=== PATIENT | female | born 1980 | race Caucasian/White ===

== ENCOUNTER 2017-07-25 13:10 | Emergency (ER) | payer MEDICAID ==
[~2017-07-25] VITALS: Ht 154.9 cm; Wt 62.5 kg
[~2017-07-25 13:10] MED LIST: PRENATALS
[2017-07-25 13:19] VITALS: Ht 154.9 cm; Wt 62.5 kg
[2017-07-25] MEDS ORDERED: SOD CHLORIDE 0.9% 1,000 ML IV STA (14:34)
[2017-07-25] MEDS ORDERED: ACETAMINOPHEN 500 MG TAB PO STA (14:34)
[2017-07-25 15:12] LABS: BASOPHILS % 0.1 % (0.0-2.0); HEMATOCRIT 37.8 % (37.0-47.0); HEMOGLOBIN 12.2 g/dl (12.0-16.0); LYMPHOCYTES # 1.1 10^3/ul (0.8-2.9); LYMPHOCYTES % 6.1 % (15.0-51.0); MEAN CORPUSCULAR HEMOGLOBIN 28.1 pg (29.0-33.0); MEAN CORPUSCULAR HGB CONC 32.3 g/dl (32.0-37.0); MEAN CORPUSCULAR VOLUME 87.1 fl (82.0-101.0); MEAN PLATELET VOLUME 10.1 fl (7.4-10.4); MONOCYTE # 0.8 10^3/ul (0.3-0.9); MONOCYTES % 4.5 % (0.0-11.0); NEUTROPHIL # 15.8 10^3/ul (1.6-7.5); NEUTROPHILS % 88.7 % (39.0-77.0); PLATELET COUNT 292 10^3/UL (140-415); RED BLOOD COUNT 4.34 10^6/ul (4.20-5.40); RED CELL DISTRIBUTION WIDTH 13.2 % (11.5-14.5); WHITE BLOOD COUNT 17.8 10^3/ul (4.8-10.8)
[2017-07-25] MEDS ORDERED: CEFTRIAXONE 1 GM/50 ML (PMX) 50 ML IVPB STA (15:23)
[2017-07-25 15:27] LABS: INR 1.11; PROTIME 14.3 Sec (12.2-14.2); PT RATIO 1.1
[2017-07-25 15:28] LABS: ADD UMIC YES; ALBUMIN 4.1 g/dl (3.3-4.9); ALBUMIN/GLOBULIN RATIO 1.17; BILIRUBIN,INDIRECT 0.4 mg/dl (0-1.1); BILIRUBIN,TOTAL 0.4 mg/dl (0.2-1.3); CALCIUM 8.9 mg/dl (8.4-10.2); CREATININE 0.7 mg/dl (0.44-1.00); PARTIAL THROMBOPLASTIN TIME 28.1 Sec (25.0-35.0); POTASSIUM 3.4 mmol/L (3.5-5.1); TOTAL PROTEIN 7.6 g/dl (6.1-8.1); UR ASCORBIC ACID NEGATIVE (NEGATIVE); UR BILIRUBIN (Dip) NEGATIVE (NEGATIVE); UR BLOOD (Dip) 1+ mg/dL (NEGATIVE); UR CLARITY SLIGHTLY CLOUDY (CLEAR); UR COLOR YELLOW (YELLOW); UR GLUCOSE (Dip) NEGATIVE (NEGATIVE); UR KETONES (Dip) NEGATIVE (NEGATIVE); UR LEUKOCYTE ESTERASE (Dip) 1+ Leu/ul (NEGATIVE); UR MUCUS FEW /HPF (NONE SEEN); UR NITRITE (Dip) NEGATIVE (NEGATIVE); UR RBC 1 /HPF (0-5); UR SPECIFIC GRAVITY (Dip) 1.025 (1.003-1.030); UR SQUAMOUS EPITHELIAL CELL FEW /HPF (FEW); UR TOTAL PROTEIN (Dip) NEGATIVE (NEGATIVE); UR UROBILINOGEN (Dip) NEGATIVE (NEGATIVE)
[2017-07-25] MEDS ORDERED: CEFTRIAXONE 1 GM/50 ML (PMX) 50 ML IVPB ONE (15:30)
--- NOTE | 2017-07-25 15:43 | RADRPT ---
PROCEDURE: US Pelvis. CLINICAL INDICATION: Pelvic pain. TECHNIQUE: The pelvis was evaluated with transabdominal and transvaginal sonography in the axial a nd sagittal planes. COMPARISON: No prior study is available for comparison. FINDINGS: Uterus: 9.9 x 4.5 x 5.7 cm. Endometrium: 13.5 mm. Right ovary: 2.4 x 4.5 x 3.5 cm. Left ovary: 2.7 x 2.0 x 2.5 cm. Uterine masses: None. Ovarian masses: None. Color Doppler and pulsed Doppler sonography demonstrate normal flow to the ova hernesto. Other pelvic masses: None. Free fluid: None. IMPRESSION: 1. Normal pelvic ultrasound. RPTAT: QQ .Ta Teixeira MD, MD Date Time Electronically viewed and signed by .Ta Teixeira MD, on 07/25/2017 15:42 .R/
[2017-07-25 16:44] VITALS: BP 94/64; PULSE 89; RESP 20; TEMP 98.8
--- NOTE | 2017-07-25 17:10 | ERD ---
ER Documentation Chief Complaint Date/Time DATE: 07/25/17 TIME: 17:08 Chief Complaint Complains of pelvic x 2 days HPI 37-year-old female presents to the emergency department complaining of fever and severe constant pelvic pain for the past 2 days. Patient denies nausea, vomiting, constipation, diarrhea, dysuria, hematuria. She has not tried any medications for this. ROS All systems reviewed and are negative except as per history of present illness. Medications Home Meds Active Scripts Cephalexin* (Keflex*) 500 Mg Capsule, 500 MG PO TID for 7 Days, CAP Prov:DARIUSZ ROBLES PA-C 07/25/17 Acetaminophen* (Tylenol*) 325 Mg Tablet, 2 TAB PO Q4 Y for PAIN AND OR ELEVATED TEMP, #30 TAB Prov:DARIUSZ ROBLES PA-C 07/25/17 Reported Medications [Prenatals] No Conflict Check 05/30/13 Allergies Allergies: Coded Allergies: No Known Drug Allergy (Unverified Allergy, Unknown, 05/30/13) PMhx/Soc History of Surgery: No Anesthesia Reaction: No Hx Neurological Disorder: No Hx Respiratory Disorders: No Hx Cardiac Disorders: No Hx Psychiatric Problems: No Hx Miscellaneous Medical Probl: No Hx Alcohol Use: No Hx Substance Use: No Hx Tobacco Use: No Physical Exam Vitals Vital Signs Date Time Temp Pulse Resp B/P Pulse Ox O2 Delivery O2 Flow Rate FiO2 07/25/17 16:44 98.8 89 20 94/64 98 Room Air 07/25/17 13:19 101.4 119 20 105/61 98 Physical Exam GENERAL: well-developed/well-nourished, in no apparent distress, non-toxic appearing HENT: NC/AT, moist mucous membranes EYES: Conjunctiva normal NECK: Supple, no lymphadenopathy PULM: CTA bilaterally, no rales, rhonchi, or wheezing heard CV: Normal S1S2, RRR, good capillary refill GI: Soft, non-distended, tender to palpation pelvic, right and lower quadrant Normal bowel sounds, no masses or organomegaly felt on exam No gross peritonitis, no bruits Negative Rovsing, negative Yates, negative McBurney's point, Negative CVAT BACK: No masses EXT: No clubbing, cyanosis, or edema NEURO: Alert and Orientated SKIN: Intact, normal turgor PSYCH: Normal mood and mentation Result Diagram: 07/25/17 1449 07/25/17 1449 Results 24 hrs Laboratory Tests Test 07/25/17 14:49 White Blood Count 17.810^3/ul Red Blood Count 4.3410^6/ul Hemoglobin 12.2g/dl Hematocrit 37.8% Mean Corpuscular Volume 87.1fl Mean Corpuscular Hemoglobin 28.1pg Mean Corpuscular Hemoglobin Concent 32.3g/dl Red Cell Distribution Width 13.2% Platelet Count 47752^3/UL Mean Platelet Volume 10.1fl Neutrophils % 88.7% Lymphocytes % 6.1% Monocytes % 4.5% Eosinophils % 0.0% Basophils % 0.1% Nucleated Red Blood Cells % 0.0/100WBC Neutrophils # 15.810^3/ul Lymphocytes # 1.110^3/ul Monocytes # 0.810^3/ul Eosinophils # 0.010^3/ul Basophils # 0.010^3/ul Nucleated Red Blood Cells # 0.010^3/ul Prothrombin Time 14.3Sec Prothrombin Time Ratio 1.1 INR International Normalized Ratio 1.11 Activated Partial Thromboplast Time 28.1Sec Urine Color YELLOW Urine Clarity SLIGHTLY CLOUDY Urine pH 5.0 Urine Specific Dixon 1.025 Urine Ketones NEGATIVEmg/dL Urine Nitrite NEGATIVEmg/dL Urine Bilirubin NEGATIVEmg/dL Urine Urobilinogen NEGATIVEmg/dL Urine Leukocyte Esterase 1+Gian/ul Urine Microscopic RBC 1/HPF Urine Microscopic WBC 5/HPF Urine Squamous Epithelial Cells FEW/HPF Urine Mucus FEW/HPF Urine Hemoglobin 1+mg/dL Urine Glucose NEGATIVEmg/dL Urine Total Protein NEGATIVEmg/dl Sodium Level 139mmol/L Potassium Level 3.4mmol/L Chloride Level 106mmol/L Carbon Dioxide Level 24mmol/L Anion Gap 12 Blood Urea Nitrogen 15mg/dl Creatinine 0.70mg/dl Glucose Level 125mg/dl Lactic Acid Level 1.4mmol/L Calcium Level 8.9mg/dl Total Bilirubin 0.4mg/dl Direct Bilirubin 0.00mg/dl Indirect Bilirubin 0.4mg/dl Aspartate Amino Transf (AST/SGOT) 30IU/L Alanine Aminotransferase (ALT/SGPT) 46IU/L Alkaline Phosphatase 68IU/L Total Protein 7.6g/dl Albumin 4.1g/dl Globulin 3.50g/dl Albumin/Globulin Ratio 1.17 Lipase 50U/L Current Medications Medications (Trade) Dose Ordered Sig/Martina Route PRN Reason Start Time Stop Time Status Last Admin Dose Admin Sodium Chloride (NS) 1,000 ml @ 2,000 mls/hr Q30M STAT IV 07/25/17 14:34 07/25/17 15:03 DC 07/25/17 15:40 Acetaminophen 1000 mg 1,000 mg ONCE STAT PO 07/25/17 14:34 07/25/17 14:36 DC 07/25/17 15:39 Ceftriaxone Sodium 50 ml @ 100 mls/hr ONCE ONCE IVPB 07/25/17 15:30 07/25/17 15:30 DC Ceftriaxone Sodium (Rocephin) 50 ml @ 100 mls/hr ONCE STAT IVPB 07/25/17 15:23 07/25/17 15:52 DC 07/25/17 15:40 Procedures/MDM Is a 37-year-old female presenting to the emergency department complaining of suprapubic pain and fever for the past 2 days. This is likely due to acute cystitis. No evidence of sepsis. There was no evidence of acute abdomen or pyelonephritis. IV access established, patient had evidence of leukocytosis ~ 17 , lactic acid was within normal limits. CMP did not show any evidence of renal, liver or electrolyte abnormalities. Urinalysis had positive leukocyte esterase. In the ED patient was given 2 L of fluids and ceftriaxone. I have reassessed patient and she significant feels a lot better and she stable to be discharged home to follow-up with primary care physician. CT abd and pelvis without contrast: 1. No evidence for acute intra-abdominal or pelvic pathology is present and specifically no evidence for abscess formation. 2. No evidence for ascites or pneumoperitoneum Pelvic ultrasound: Normal pelvic ultrasound. Departure Diagnosis: Primary Impression: Cystitis Additional Impression: Fever Condition: Stable DARIUSZ ROBLES PA-C Jul 25, 2017 17:10
--- NOTE | 2017-07-25 17:14 | RADRPT ---
PROCEDURE: CT abdomen and pelvis without contrast. CLINICAL INDICATION: Abdominal pain and fever TECHNIQUE: CT scan of the abdomen and pelvis without contrast was performed on a [email or web address] CT scanner utilizing axial imaging from the lung bases through the pubis symphysis. The patient was sc anned without intravenous contrast. Sagittal and coronal reformatted images were made. The CTDIvol is 7.75 mGy and the DLP is 412.53 mGycm. One of the following 3 does reduction techniques were used during this CT examination: 1) Automated exposure control 2) Adjustment of the mA +/- kV according to patient size or 3) Use of iterative reconstruction technique COMPARISON: No relevant priors FINDINGS: The lung bases are clear. The heart size is normal. No pericardial or pleural effusion is present. The visualized liver is normal size and attenuation without focal lesions. The visualized spleen, pa ncreas, and gallbladder are normal. No evidence for intrahepatic or extra panic biliary ductal dilat ation is noted. The bilateral kidneys are normal. No evidence for hydroureteronephrosis or nephroure terolithiasis is present. The visualized aorta is normal without aneurysmal dilatation. The visualized bowel is nonobstructive. No evidence for diverticulosis, diverticulitis or appendicit is is present. No evidence for pneumoperitoneum or ascites is present. The urinary bladder is well distended. The uterus and bilateral adnexa are normal. No evidence for p elvic masses or pathologic lymphadenopathy is present. There is no evidence of free air. No aneury smal dilatation of the aorta is evident. The surrounding osseous structures are normal.. IMPRESSION: 1. No evidence for acute intra-abdominal or pelvic pathology is present and specifically no evidenc e for abscess formation. 2. No evidence for ascites or pneumoperitoneum RPTAT: HDC .Savanah Felix MD, MD Date Time Electronically viewed and signed by .Savanah Felix MD, MD on 07/25/2017 17:14 .C/
[2017-07-25] MEDS ORDERED: CEPH-443 PO (17:28)
[2017-07-25] MEDS ORDERED: ACET325T33 PO (17:28)
== END 2017-07-25 17:50 | disposition home or self-care (01) ==
LOC: FTE 13:10
DX: N30.90 Cystitis, unspecified without hematuria (principal)
CPT/HCPCS: 36415; 74176; 76830; 76856; 80053; 81001; 83605; 83690; 85025; 85610; 85730; 87040; 87086; 96374; J0696; J7030; Z7502; Z7610